=== PATIENT | female | born 2000 | race Caucasian/White ===

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

== ENCOUNTER 2019-02-05 16:34 | Emergency (ER) | payer OTHER ==
[~2019-02-05] VITALS: Ht 154.9 cm; Wt 68.1 kg
[~2019-02-05 16:34] MED LIST: ZANA4TAB PO
[2019-02-05 16:46] VITALS: BP 124/85
== END 2019-02-05 20:05 | disposition left against medical advice (07) ==
LOC: M ED 16:34
DX: Z53.21 Procedure and treatment not carried out due to patient leaving prior to being seen by health care provider (principal)

== ENCOUNTER 2019-06-07 15:47 | Emergency (ER) | payer OTHER ==
[~2019-06-07] VITALS: Ht 157.5 cm; Wt 63.6 kg
[2019-06-07 15:48] VITALS: BP 141/77
== END 2019-06-07 16:22 | disposition home or self-care (01) ==
LOC: M ED 15:47
DX: Z48.00 Encounter for change or removal of nonsurgical wound dressing (principal)

== ENCOUNTER 2020-04-14 16:39 | Emergency (ER) | payer OTHER ==
[~2020-04-14] VITALS: Ht 157.5 cm; Wt 71.2 kg
[2020-04-14] MEDS ORDERED: MACR100C43 PO (16:47)
[2020-04-14 18:47] VITALS: BP 122/78
== END 2020-04-14 18:48 | disposition home or self-care (01) ==
LOC: M ED 16:39
DX: O03.9 Complete or unspecified spontaneous abortion without complication (principal)

== ENCOUNTER 2020-04-24 12:27 | Emergency (ER) | payer OTHER ==
[~2020-04-24] VITALS: Ht 157.5 cm; Wt 72.4 kg
[~2020-04-24 12:27] MED LIST changes: +MACR100C43 PO
[2020-04-24 13:29] LABS: BASO % 0.6 % (0.0-1.0); EOS # 0.2 10^3/uL (0.0-0.5); EOS % 3.6 % (0.0-3.0); HEMATOCRIT 40.2 % (36.0-47.0); HEMOGLOBIN 13.3 g/dl (12.0-15.5); LYMPH # 1.7 10^3/uL (1.5-5.0); LYMPH % 31.7 % (24.0-44.0); MEAN CORPUSCULAR HEMOGLOBIN 29.1 pg (27.0-33.0); MEAN CORPUSCULAR HGB CONC 33.1 g/dl (32.0-36.5); MONO # 0.3 10^3/uL (0.0-0.8); MONO % 5.5 % (0.0-5.0); NEUTROPHILS % 58.2 % (36.0-66.0); PLATELET COUNT, AUTOMATED 388 10^3/uL (150-450); RED BLOOD COUNT 4.57 10^6/uL (4.00-5.40); WHITE BLOOD COUNT 5.2 10^3/uL (4.0-10.0)
--- NOTE | 2020-04-24 13:37 | REPVR ---
PROCEDURE INFORMATION: Exam: US Pelvis Complete, Transabdominal and US Pelvis, Transvaginal Exam date and time: 04/24/2020 1:15 PM Age: 19 years old Clinical indication: Menstruation abnormalities; Other: Had miscarriage on 04/14/2020, stopped bleeding and is now bleeding again; Patient HX: PT states had miscarriage on 04/14/2020, started bleeding again, quant went from 28 to 36; Additional info: Recent complete ab 04/14, vaginal bleeding/foul odor TECHNIQUE: Imaging protocol: Real-time transabdominal and transvaginal pelvic ultrasound (complete) with image documentation. Transvaginal imaging was used for better evaluation of the endometrium and adnexa. COMPARISON: No relevant prior studies available. FINDINGS: Uterus/cervix: Uterus measures 7.7 x 3.2 x 4.8 cm. AP endometrial stripe thickness measures 9 mm. Heterogeneity of the endometrium. Small amount of fluid within the endometrium. No discrete focus of hypervascularity within the endometrium. Gestation: No intrauterine gestational sac. Right adnexa: Right ovary measures 1.7 by 2.9 x 1.8 cm. Positive blood flow. Left adnexa: Left ovary measures 1.5 x 2.6 x 1.7 cm. Positive blood flow. Intraperitoneal space: None. Urinary bladder: Bladder is nondistended, somewhat limiting evaluation. IMPRESSION: Heterogeneity of the endometrium, likely related to retained blood product. There is no discrete focus of hypervascularity within the endometrium, but retained products of conception cannot be fully excluded. Electronically signed by: Loida Ely On 04/24/2020 13:37:24 PM
[2020-04-24 14:04] LABS: ALBUMIN 3.9 GM/DL (3.2-5.2); ALT/SGPT 16 U/L (12-78); BILIRUBIN,DIRECT 0.2 MG/DL (0.0-0.2); BILIRUBIN,TOTAL 0.6 MG/DL (0.2-1.0); BLOOD UREA NITROGEN 13 MG/DL (7-18); CARBON DIOXIDE LEVEL 26 MEQ/L (21-32); CHLORIDE LEVEL 106 MEQ/L (98-107); CREATININE FOR GFR 0.77 MG/DL (0.55-1.30); GLUCOSE, FASTING 86 MG/DL (70-100); HCG, SERUM QUANTITATIVE 23 MIU/ML; POTASSIUM SERUM 4.3 MEQ/L (3.5-5.1); SODIUM LEVEL 139 MEQ/L (136-145); TOTAL PROTEIN 7.4 GM/DL (6.4-8.2)
[2020-04-24 14:12] LABS: HEPATITIS B SURFACE ANTIBODY POSITIVE (POSITIVE)
[2020-04-24 14:22] LABS: HEPATITIS B SURFACE ANTIGEN NEGATIVE (NEGATIVE)
[2020-04-24 14:51] LABS: HEPATITIS C VIRUS ABY INDEX 0.1 INDEX (<0.8); HIV 1&2 SCREEN CENTAUR NEGATIVE (NEGATIVE)
[2020-04-24 15:11] LABS: CHLAMYDIA DNA AMPLIFICATION POSITIVE (NEGATIVE); GC DNA AMPLIFICATION NEGATIVE (NEGATIVE)
[2020-04-24] MEDS ORDERED: AZITHROMYCIN 250MG TABLET PO ONE (15:15)
[2020-04-24 15:39] VITALS: BP 117/73
[2020-04-24] MEDS ORDERED: FLAG500T PO (15:42)
--- NOTE | 2020-04-25 13:47 | ED PDOC ---
Post-Departure Follow-Up pelvc us faxed to [facility], fp, and dr swan for fu Lul Layne MD Apr 25, 2020 13:47
== END 2020-04-24 15:50 | disposition home or self-care (01) ==
LOC: M ED 12:27
DX: A74.9 Chlamydial infection, unspecified (principal); N76.0 Acute vaginitis; N93.9 Abnormal uterine and vaginal bleeding, unspecified; R10.2 Pelvic and perineal pain

== ENCOUNTER 2021-03-15 15:55 | Emergency (ER) | payer OTHER ==
[~2021-03-15] VITALS: Ht 157.5 cm; Wt 70.9 kg
[~2021-03-15 15:55] MED LIST changes: +FLAG500T PO
[2021-03-15 18:26] LABS: BASO % 0.4 % (0.0-1.0); EOS # 0.1 10^3/uL (0.0-0.5); EOS % 1.4 % (0.0-3.0); HEMATOCRIT 45.9 % (36.0-47.0); LYMPH # 1.4 10^3/uL (1.5-5.0); LYMPH % 16.9 % (24.0-44.0); MEAN CORPUSCULAR HEMOGLOBIN 29.8 pg (27.0-33.0); MEAN CORPUSCULAR HGB CONC 32.7 g/dl (32.0-36.5); MEAN CORPUSCULAR VOLUME 91.3 fl (80.0-96.0); MONO # 0.5 10^3/uL (0.0-0.8); MONO % 5.9 % (2.0-8.0); NEUTROPHILS # 6.1 10^3/uL (1.5-8.5); NEUTROPHILS % 75.2 % (36.0-66.0); PLATELET COUNT, AUTOMATED 358 10^3/uL (150-450); RED BLOOD COUNT 5.03 10^6/uL (4.00-5.40); WHITE BLOOD COUNT 8.1 10^3/uL (4.0-10.0)
[2021-03-15] MEDS ORDERED: ISOVUE-370 76% 100ML VIAL As Ordered ONE (18:39)
[2021-03-15 18:51] LABS: ERYTHROCYTE SEDIMENTATION RATE 8 mm/hr (0-20)
[2021-03-15 18:54] LABS: C REACTIVE PROTEIN QUANTITATIV 0.98 MG/DL (0.00-0.30)
[2021-03-15] MEDS ORDERED: dexameTHASONE 20MG/5ML VIAL (J1100 PER 1MG) IV ONE (19:15)
[2021-03-15] MEDS ORDERED: NS 1,000 ML IV ONE (19:15)
[2021-03-15 19:23] LABS: MONO REFLEX EBV COMP NEGATIVE (NEGATIVE)
--- NOTE | 2021-03-15 19:45 | REPVR ---
PROCEDURE INFORMATION: Exam: CT Neck With Contrast Exam date and time: 03/15/2021 6:44 PM Age: 20 years old Clinical indication: Left tonsillar swelling into neck. TECHNIQUE: Imaging protocol: Computed tomography images of the neck with contrast. Radiation optimization: All CT scans at this facility use at least one of these dose optimization techniques: automated exposure control; mA and/or kV adjustment per patient size (includes targeted exams where dose is matched to clinical indication); or iterative reconstruction. Contrast material: ISOVUE 370; Contrast volume: 75 ml; Contrast route: INTRAVENOUS (IV); COMPARISON: No relevant prior studies available. FINDINGS: Orbital cavity: Incidental note is made of bilateral lens implants. The globes and orbits are otherwise unremarkable. Mastoid air cells: The mastoid air cells are well aerated. Auditory system: The middle ear spaces are clear. Paranasal sinuses: The sinuses are well-aerated. No air-fluid levels are noted in the sinuses. Nasal cavity: Unremarkable. Nasopharynx: Unremarkable. Oral Cavity: Unremarkable. Dental: No dental caries or periapical abscess are noted. Oropharynx: There is a 6 mm x 4 mm x 7 mm region of low attenuation in the left palatine tonsil (image 27 of the axial series 201 and image 33 of the coronal series 202), which may represent a phlegmon or tonsillar abscess. There is asymmetric enhancement of the left palatine tonsil, which is compatible with left palatine tonsillitis (image 29 of the axial series 201). There is moderate enlargement of the palatine tonsils. No airway compromise is noted. Hypopharynx: Unremarkable. Larynx: Unremarkable. No swelling of the epiglottis. No mass. Retropharyngeal space: Unremarkable. No retropharyngeal edema or fluid collection. Submandibular/Parotid glands: Unremarkable. Thyroid: Unremarkable. Lymph nodes: There is left level 2A and left level 3 cervical lymphadenopathy (image 57 of the sagittal series 203). Trachea: Normal as visualized. The lower trachea was not fully imaged. Lungs: The imaged lung apices are clear. The lungs were not fully imaged. Bones/joints: There is no fracture or dislocation. No suspicious osteolytic or osteoblastic lesion. There are no bony destructive changes. Vasculature: The vertebral arteries, common carotid arteries, internal carotid arteries, and external carotid arteries are patent. The internal jugular veins are patent. Soft tissues: Unremarkable. No soft tissue swelling or fluid collection is noted. IMPRESSION: 1. Left palatine tonsillitis and a 6 mm x 4 mm x 7 mm region of low attenuation in the left palatine tonsil, which may represent inflammatory change or a tonsillar abscess. 2. Left level 2A and left level 3 cervical lymphadenopathy. Electronically signed by: Maynor Garner On 03/15/2021 19:44:42 PM
[2021-03-15] MEDS ORDERED: AUGMENTIN 875 MG TAB PO ONE (20:10)
[2021-03-15] MEDS ORDERED: AUGM875T28 PO (20:13)
[2021-03-15 20:54] VITALS: BP 121/76
--- NOTE | 2021-03-16 08:11 | ED PDOC ---
Post-Departure Follow-Up ct neck faxed [facility] for fu Lul Layne MD Mar 16, 2021 08:11
[2021-03-18 16:08] LABS: EBV VIRAL CAPSID AG IgM <36.0 U/mL (0.0-35.9)
== END 2021-03-15 21:01 | disposition home or self-care (01) ==
LOC: M ED 15:55
DX: J03.90 Acute tonsillitis, unspecified (principal); R59.0 Localized enlarged lymph nodes
CPT/HCPCS: 36415; 70491; 80047; 84702; 85025; 85652; 86140; 86308; 86664; 86665; 87880; 96361; 96374; 99284; J1100; Q9967

== ENCOUNTER 2021-12-21 14:50 | Outpatient (CLI) | payer OTHER ==
[~2021-12-21] VITALS: Ht 157.5 cm; Wt 85.1 kg
[~2021-12-21 14:50] MED LIST changes: +AUGM875T28 PO
[2021-12-21 15:10] VITALS: BP 124/85
[2021-12-21] MEDS ORDERED: PRENTAB9 PO (15:23)
== END 2021-12-21 15:55 | disposition home or self-care (01) ==
LOC: M LDO 14:50
PROVIDERS: ATTEND Obstetrics & Gynecology
DX: O26.893 Other specified pregnancy related conditions, third trimester (principal); R10.2 Pelvic and perineal pain; Z3A.38 38 weeks gestation of pregnancy
CPT/HCPCS: 59025; 76815; G0378; G0463

== ENCOUNTER 2022-01-04 13:13 | Outpatient (CLI) | payer OTHER ==
[~2022-01-04] VITALS: Ht 157.5 cm; Wt 83.1 kg
[~2022-01-04 13:13] MED LIST changes: +PRENTAB9 PO
[2022-01-04 13:34] VITALS: BP 113/73
== END 2022-01-04 14:45 | disposition home or self-care (01) ==
LOC: M LDO 13:13
PROVIDERS: ATTEND Obstetrics & Gynecology
DX: O47.1 False labor at or after 37 completed weeks of gestation (principal); Z3A.40 40 weeks gestation of pregnancy
CPT/HCPCS: 59025; 76815; G0463

== ENCOUNTER 2022-01-04 23:55 | Inpatient (IN) | payer OTHER ==
[~2022-01-04] VITALS: Ht 157.5 cm; Wt 84.5 kg
[2022-01-05] VITALS (48 sets, daily range): BP systolic 96–162; BP diastolic 53–100
[2022-01-05] MEDS ORDERED: LACTATED RINGER'S 1000 ML IV STA (00:34)
[2022-01-05] MEDS ORDERED: OXYTOCIN DRIP 30 UNITS in IV 1 EA IV PRN ×4 (00:35)
[2022-01-05 00:57] LABS: HEMATOCRIT 42.2 % (36.0-47.0); HEMOGLOBIN 13.8 g/dl (12.0-15.5); MEAN CORPUSCULAR HEMOGLOBIN 28.2 pg (27.0-33.0); MEAN CORPUSCULAR HGB CONC 32.7 g/dl (32.0-36.5); MEAN CORPUSCULAR VOLUME 86.3 fl (80.0-96.0); PLATELET COUNT, AUTOMATED 278 10^3/uL (150-450); RED BLOOD COUNT 4.89 10^6/uL (4.00-5.40); WHITE BLOOD COUNT 12.4 10^3/uL (4.0-10.0)
[2022-01-05] MEDS ORDERED: FENTANYL 2MCG/ML ROPIVACAINE 0.2% IN 0.9% NACL 100ML IVBAG As Ordered ONE (01:27)
[2022-01-05] MEDS ORDERED: NALOXONE INJ 0.4MG/1ML VIAL (J2310 PER 1MG) IV PRN (01:35)
[2022-01-05] MEDS ORDERED: ONDANSETRON 4MG/2ML VIAL IV PRN ×2 (01:35→13:30)
[2022-01-05] MEDS ORDERED: ePHEDrine SULFATE 25 MG/5 ML(5MG/ML) SYRINGE IVP PRN (01:35)
[2022-01-05] MEDS ORDERED: diphenhydrAMINE 50MG/ML VIAL (J1200) IV PRN (01:35)
[2022-01-05] MEDS ORDERED: LR 500 ML IV PRN (01:35)
[2022-01-05] MEDS ORDERED: EPIDURAL/PCA KEYS XX PRN (01:35)
[2022-01-05] MEDS: FENTANYL/ROPIVACAINE/NACL BAG 100 ML EPIDURAL SCH ×2 (02:04→12:13)
[2022-01-05] MEDS: LR 1,000 ML IV SCH ×2 (02:08→09:59)
[2022-01-05] MEDS: PRENATAL VITAMINS CHEWABLE TABLET PO SCH (09:00)
[2022-01-05] MEDS ORDERED: AMPICILLIN SOD 2 GM in D5W MINI-BAG PLUS 100 ML IV SCH (10:00)
[2022-01-05] MEDS ORDERED: GENTAMICIN 400 MG in D5W 100 ML IV ONE (11:00)
[2022-01-05] MEDS ORDERED: OXYTOCIN DRIP 30 UNITS in IV 1 EA IV SCH ×4 (13:30)
[2022-01-05] MEDS ORDERED: METHYLERGONOVINE MALEATE 0.2 MG TAB PO PRN (13:30)
[2022-01-05] MEDS ORDERED: IBUPROFEN 600MG TAB PO PRN (13:30)
[2022-01-05] MEDS ORDERED: IBUPROFEN 800 MG TAB PO PRN (13:30)
[2022-01-05] MEDS ORDERED: ANUSOL HC CREAM 30GM TOP PRN (13:30)
[2022-01-05] MEDS ORDERED: LR 1,000 ML IV SCH (13:30)
[2022-01-05] MEDS ORDERED: DIBUCAINE 1% OINTMENT 30GM TOP PRN (13:30)
[2022-01-05] MEDS ORDERED: RHOGAM 300 MCG (1500 IU) INJ (J2790) IM SCH (13:30)
[2022-01-05] MEDS ORDERED: ACETAMINOPHEN TAB 650MG DOSE (2X325MG) PO PRN (13:30)
[2022-01-05] MEDS: DOCUSATE SODIUM 100MG CAPSULE PO SCH (20:35)
[2022-01-06] MEDS: ACETAMINOPHEN 500 MG TAB PO PRN ×2 (05:53→19:36)
[2022-01-06 06:00] VITALS: BP 111/59
[2022-01-06] MEDS: DOCUSATE SODIUM 100MG CAPSULE PO SCH ×2 (09:14→22:04)
[2022-01-06] MEDS: PRENATAL VITAMINS CHEWABLE TABLET PO SCH (09:14)
[2022-01-06 18:00] VITALS: BP 123/78
[2022-01-07] MEDS: ACETAMINOPHEN 500 MG TAB PO PRN (04:07)
[2022-01-07 06:00] VITALS: BP 107/65
[2022-01-07] MEDS ORDERED: PRENCHW PO (06:56)
[2022-01-07] MEDS ORDERED: COLA100C5 PO (06:56)
[2022-01-07] MEDS ORDERED: IBUP-1022 PO (06:56)
[2022-01-07] MEDS: PRENATAL VITAMINS CHEWABLE TABLET PO SCH (08:27)
[2022-01-07] MEDS: DOCUSATE SODIUM 100MG CAPSULE PO SCH (08:36)
[2022-01-07] MEDS ORDERED: MEASLES,MUMPS,RUBELLA VACCINE INJ (MMR-II) (90707) SC.IMMUN ONE (09:00)
== END 2022-01-07 12:35 | disposition home or self-care (01) | DRG 807 ==
LOC: M LDO 23:55 → M LDI 01-05 00:24 → M OBS 01-05 16:24
PROVIDERS: ADMIT Obstetrics & Gynecology; ATTEND Obstetrics & Gynecology
PROC: 10E0XZZ Delivery of Products of Conception, External Approach (ICD-10-PCS; principal; 2022-01-05)
PROC: 0KQM0ZZ Repair Perineum Muscle, Open Approach (ICD-10-PCS; 2022-01-05)
DX: O48.0 Post-term pregnancy (principal); Z37.0 Single live birth; Z3A.40 40 weeks gestation of pregnancy; O41.1290 Chorioamnionitis, unspecified trimester, not applicable or unspecified; R00.0 Tachycardia, unspecified; O69.82X0 Labor and delivery complicated by other cord entanglement, without compression, not applicable or unspecified; O70.1 Second degree perineal laceration during delivery; O76 Abnormality in fetal heart rate and rhythm complicating labor and delivery

== ENCOUNTER 2023-06-01 07:30 | Emergency (ER) | payer OTHER ==
[~2023-06-01] VITALS: Ht 154.9 cm; Wt 71.9 kg
[~2023-06-01 07:30] MED LIST changes: +COLA100C5 PO; +IBUP-1022 PO; +PRENCHW PO
[2023-06-01] MEDS ORDERED: DAYQUIL PO (07:40)
[2023-06-01] MEDS ORDERED: POLYSOL OD (08:36)
[2023-06-01 08:42] VITALS: BP 105/68; TEMP 98.9; O2SAT 99
== END 2023-06-01 08:54 | disposition home or self-care (01) ==
LOC: M ED 07:30
DX: H10.31 Unspecified acute conjunctivitis, right eye (principal)